=== PATIENT | male | born 1980 | race Caucasian/White ===

== ENCOUNTER 2017-01-07 02:38 | Emergency (ER) | payer SELFPAY ==
[~2017-01-07] VITALS: Ht 167.6 cm; Wt 80.6 kg
[~2017-01-07 02:38] MED LIST: DICY1TAB26 PO; Z.0.NO CURRENT MEDS
[2017-01-07 03:08] VITALS: BP 142/99; PULSE 85; RESP 18; TEMP 98.4; O2SAT 96
[2017-01-07] MEDS ORDERED: IBUPROFEN SUSP 100 MG/5 ML UDC PO ONE (03:30)
[2017-01-07] MEDS ORDERED: AMOX250S2 PO (03:47)
--- NOTE | 2017-01-07 03:47 | PD ---
HPI Chief Complaint: ENT Complaint Time Seen by Provider: 03:19 Travel History International Travel<30 days: No Contact w/Intl Traveler<30days: No Traveled to known affect area: No History of Present Illness HPI 36-year-old male with ear pain since last week. Patient developed a respiratory illness last week with ear pain that resolved spontaneously and then recently within the past day has developed increasing left ear pain. Patient has taken no medications. Patient is not aware of having had fever. Patient reports last week he thinks he had fever. Patient's had nonproductive cough. No shortness of breath no chest pain no nausea no vomiting no abdominal pain no diarrhea no flank pain no dysuria frequency urgency no hematuria no skin rash no joint pain or swelling. Patient denies any significant past mental history or surgical history. Patient rates pain as moderate. Patient is unable to identify exacerbating or alleviating factors. Denies change in hearing. Patient reports she does not think he has fluent did not have the flu vaccine. PFSH Past Medical History Narrative Medical Immunizations current negative past but grossly negative past surgical history occasional alcohol use no tobacco use nursing notes reviewed Medical History: Denies Significant Hx Diminished Hearing: No Tetanus Vaccination: > 5 Years Influenza Vaccination: No Past Surgical History Surgical History: No Previous Surgery Social History Alcohol Use: Yes (6 pack beer daily) Tobacco Use: No Substance Use: No Allergies-Medications (Allergen,Severity, Reaction): Coded Allergies: No Known Allergies (Verified , 01/07/17) Reported Meds & Prescriptions Reported Meds & Active Scripts Active Amoxicillin Liq (Amoxicillin) 250 Mg/5 Ml Susp 500 Mg PO TID 10 Days Review of Systems Except as stated in HPI: all other systems reviewed are Neg General / Constitutional: No: Fever, Chills HENT: Positive: Congestion Cardiovascular: No: Chest Pain or Discomfort Respiratory: No: Shortness of Breath Gastrointestinal: No: Nausea, Vomiting, Diarrhea, Abdominal Pain Genitourinary: No: Dysuria, Flank Pain Musculoskeletal: No: Myalgias, Arthralgias Skin: No Rash Neurologic: No: Weakness Psychiatric: No: Anxiety Hematologic/Lymphatic: No: Lymph Node Enlargement Physical Exam Narrative GENERAL: Well-developed well-nourished male in no acute distress no respiratory distress SKIN: Warm and dry. HEAD: Normocephalic. EYES: No scleral icterus. No injection or drainage. ENT: Sinuses nontender to direct percussion over frontal maxillary sinuses; mucous membranes moist airway is patent; bilateral tympanic membranes without perforation left tympanic membrane is red dull with noted fluid. NECK: Supple, trachea midline. No JVD or lymphadenopathy. CARDIOVASCULAR: Regular rate and rhythm without murmurs, gallops, or rubs. RESPIRATORY: Breath sounds equal bilaterally. No accessory muscle use. GASTROINTESTINAL: Abdomen soft, non-tender, nondistended. MUSCULOSKELETAL: No cyanosis, or edema. BACK: Nontender without obvious deformity. No CVA tenderness. Data Data Last Documented VS Vital Signs Date Time Temp Pulse Resp B/P Pulse Ox O2 Delivery O2 Flow Rate FiO2 01/07/17 03:49 97.7 86 16 147/89 97 Room Air Orders Ibuprofen Liq (Motrin Liq) (01/07/17 03:30) [facility] Medical Decision Making Medical Screen Exam Complete: Yes Emergency Medical Condition: Yes Medical Record Reviewed: Yes Differential Diagnosis Viral syndrome, sinusitis, otitis media, pharyngitis, bronchitis, pneumonia, influenza Narrative Course Patient was physical exam consistent with left otitis media; patient given oral dose of ibuprofen. Patient reports he is unable to swallow pills so administered ibuprofen suspension. Patient given prescription with amoxicillin suspension Diagnosis Primary Impression: Otitis media Qualified Code: H65.91 - Right non-suppurative otitis media Referrals: Primary Care Physician call for appointment Patient Instructions: General Instructions Additional Instructions: Take acetaminophen/Tylenol every 4 hours as needed for fever 100.4F or greater Take ibuprofen/Advil/Motrin every 6-8 hours as needed for fever 100.4F or greater or for pain associated with inflammation Complete course of antibiotic as prescribed May use Afrin nasal decongestion spray per package directions twice daily as needed for nasal congestion avoid use for greater than 3 days Follow-up with primary care physician Return to the emergency department for a concerns or change in condition Med/Other Pt SpecificInfo: Prescription(s) given Scripts Amoxicillin Liq 250 Mg/5 Ml [id number] Mg PO TID 10 Days Ref 0 Prov:Magy Hanna MD 01/07/17 Disposition: 01 DISCHARGE HOME Condition: Stable Magy Hanna MD Jan 07, 2017 03:47
[2017-01-07 03:49] VITALS: BP 147/89; PULSE 86; RESP 16; TEMP 97.7; O2SAT 97
== END 2017-01-07 04:06 | disposition home or self-care (01) ==
LOC: PHED 02:38
DX: H66.92 Otitis media, unspecified, left ear (principal); F10.20 Alcohol dependence, uncomplicated
CPT/HCPCS: 99282